=== PATIENT | female | born 1990 | race African-American/Black ===

== ENCOUNTER 2016-09-27 08:15 | Emergency (ER) | payer OTHER ==
[~2016-09-27] VITALS: Ht 165.1 cm; Wt 108.9 kg
[2016-09-27 09:00] LABS: ABSOLUTE NEUTROPHILS 3.6 thou/uL (1.4-8.2); EOSINOPHILS 1.1 % (0.0-3.0); HEMATOCRIT 28.3 % (37.0-47.0); HEMOGLOBIN 8.9 gm/dL (12.0-15.0); LYMPHOCYTES 28.4 % (24.0-44.0); MCH 20.4 pg (26.0-34.0); MCHC 31.3 g/dL (28.0-37.0); MCV 65.2 fL (80.0-100.0); MONOCYTES 4.5 % (1.0-8.0); PLATELET COUNT 337 thou/uL (150-400); RBC 4.34 mil/uL (4.20-5.00); RDW 18.3 % (10.5-14.5); WBC 5.5 thou/uL (4.0-11.0)
[2016-09-27 09:01] LABS: MANUAL DIFF NO
[2016-09-27 09:08] LABS: CALCIUM 8.4 mg/dL (8.5-10.1); CREATININE 0.8 mg/dL (0.6-1.0)
[2016-09-27 09:25] LABS: ALBUMIN 3.8 g/dL (3.4-5.0); TOTAL BILIRUBIN 0.3 mg/dL (<0.1-1.0); TOTAL PROTEIN 7.9 g/dL (6.4-8.2)
[2016-09-27 09:38] LABS: ANISOCYTOSIS 2+; HYPOCHROMASIA 1+; MICROCYTES 2+; PLATELET ESTIMATE NORMAL
[2016-09-27 09:45] LABS: URINE BILIRUBIN NEGATIVE (Negative); URINE BLOOD NEGATIVE (Negative); URINE COLOR YELLOW; URINE GLUCOSE-RANDOM* NEGATIVE (Negative); URINE KETONES NEGATIVE (Negative); URINE LEUKOCYTES-REFLEX NEGATIVE (Negative); URINE PROTEIN (DIPSTICK) NEGATIVE (Negative); URINE UROBILINOGEN 0.2 E.U./dl (0.2-1.0)
[2016-09-27] MEDS ORDERED: NAPROSYN500 MG PO (10:22)
[2016-09-27 10:39] VITALS: BP 107/53
[2016-09-28 18:10] LABS: CHLAMYDIA TRACHOMATIS-PCR Negative (Negative); NEISSERIA GONORRHEA-PCR Negative (Negative)
== END 2016-09-27 10:23 | disposition home or self-care (01) ==
LOC: ER 08:15
PROVIDERS: Emergency Medicine
DX: N94.6 Dysmenorrhea, unspecified (principal); D64.9 Anemia, unspecified; F17.210 Nicotine dependence, cigarettes, uncomplicated